=== PATIENT | female | born 1935 | race Caucasian/White ===

== ENCOUNTER 2019-03-03 08:16 | Outpatient (CLI) | payer MEDICARE ==
--- NOTE | 2019-03-03 10:22 | CT ---
CT orbits noncontrast: 03/03/2019 HISTORY: 83-year-old female with persistent posttraumatic left eye pain. FINDINGS: There is no fracture. No intraorbital edema, hematoma, gas, or foreign body. Bilateral globes have sy mmetrical, normal shape. Bilateral lenses are surgically absent. Extraocular muscles and optic nerves are bilaterally symmetrical. The paranasal sinuses are clear. Nasal cavity is clear. No superf icial soft tissue hematoma. IMPRESSION: Negative
== END 2019-03-03 08:17 | disposition home or self-care (01) ==
LOC: BICCT 08:16
PROVIDERS: ATTEND Family Medicine
DX: S05.12XA Contusion of eyeball and orbital tissues, left eye, initial encounter (principal)
CPT/HCPCS: 70480

== ENCOUNTER 2019-06-30 14:01 | Emergency (ER) | payer MEDICARE ==
[2019-06-30 14:57] LABS: #Basophils 0.1 thou/uL (0.0-0.2); #Eosinphils 0.2 thou/uL (0.0-0.7); #Lymphocytes 2.3 thou/uL (1.20-3.40); #Monocytes 0.8 thou/uL (0.11-0.59); #Neutrophils 4.4 thou/uL (1.40-6.50); %Basophils 1.3 % (0.0-1.0); %Eosinophils 2.8 % (0.0-10.0); %Lymphocytes 29.8 % (21.0-51.0); %Monocytes 10.2 % (0.0-10.0); %Neutrophils 55.9 % (42.0-75.0); Hemoglobin 11.6 g/dL (12.0-16.0); Mean Corpuscular HGB CONC 33.7 g/dL (32.0-36.0); Mean Corpuscular Hemoglobin 29.6 pg (27.0-31.0); Mean Corpuscular Volume 87.8 fL (78.0-98.0); Mean Platelet Volume 5.9 fL (7.4-10.4); Platelet Count 262 thou/uL (130-400); RBC Distribution Width 11.8 % (11.5-14.5); Red Blood Cell (RBC) Count 3.93 mill/uL (4.20-5.40); White Blood Cell (WBC) Count 7.8 thou/uL (4.8-10.8)
[2019-06-30 15:15] LABS: ALT (SGPT) 12 U/L (8-55); AST (SGOT) 17 U/L (5-34); Albumin 4.1 g/dL (3.4-4.8); Alkaline Phosphatase 51 U/L (40-150); Anion Gap 18 mmol/L (10-20); BUN (Urea Nitrogen) 11 mg/dL (9.8-20.1); Bilirubin, Total 0.3 mg/dL (0.2-1.2); Calc. Creatinine Clearance 0 mL/min (70-130); Calcium 10.2 mg/dL (7.8-10.44); Carbon Dioxide 24 mmol/L (23-31); Chloride 102 mmol/L (98-107); Estimated GFR-MDRD 69; Globulin 2.9 g/dL (2.4-3.5); Glucose 91 mg/dL (83-110); Lipase 42 U/L (8-78); Potassium 3.7 mmol/L (3.5-5.1); Sodium 140 mmol/L (136-145)
--- NOTE | 2019-06-30 15:19 | CT ---
EXAM: CT Abdomen Pelvis WO Con PROVIDED CLINICAL HISTORY: Left lower quadrant pain COMPARISON: None FINDINGS: The visualized lung bases are free of significant opacity. The solid abdominal organs are suboptimally evaluated in the absence of IV contrast material but demo nstrate an unremarkable unenhanced CT appearance. No evidence for urinary tract calculi. Minimal focal fat stranding about the distal descending colon with numerous sigmoid and descending co lonic diverticula seen. No evidence for extraluminal gas. No free fluid or evidence for bowel obstruction. No evidence for appendicitis. Scattered vascular calcifications are seen. The osseous structures demonstrate no concerning lytic or blastic lesions. Lower lumbar spine degener ative changes are seen. IMPRESSION: Uncomplicated descending colon diverticulitis.
[2019-06-30] MEDS ORDERED: Sodium Chloride 0.9% 100 ML ONE (15:53)
[2019-06-30] MEDS ORDERED: Piperacillin/Tazobactam 4.5 GM VIAL ONE (15:53)
[2019-06-30] MEDS ORDERED: Ondansetron PF 4 MG/2 ML Vial ONE (17:40)
[2019-06-30] MEDS ORDERED: Morphine 4 MG/ML VIAL ONE (17:40)
== END 2019-06-30 18:45 | disposition short-term general hospital (02) ==
LOC: SCSER 14:01
DX: K57.32 Diverticulitis of large intestine without perforation or abscess without bleeding (principal); E78.5 Hyperlipidemia, unspecified; E78.00 Pure hypercholesterolemia, unspecified; F41.9 Anxiety disorder, unspecified; F32.9 Major depressive disorder, single episode, unspecified; Z79.899 Other long term (current) drug therapy; Z79.82 Long term (current) use of aspirin
CPT/HCPCS: 74176; 80053; 83605; 83690; 85025; 96361; 96365; J2270; J2405; J2543; J3490

== ENCOUNTER 2022-07-23 17:30 | Outpatient (CLI) | payer MEDICARE | END 2022-07-23 17:31 | disposition home or self-care (01) | LOC: SLEEPLAB 17:30 | PROVIDERS: ATTEND Internal Medicine Pulmonary Disease | DX: G47.33 Obstructive sleep apnea (adult) (pediatric) (principal); R06.83 Snoring; R06.02 Shortness of breath; K21.9 Gastro-esophageal reflux disease without esophagitis; I10 Essential (primary) hypertension; E78.5 Hyperlipidemia, unspecified; G47.00 Insomnia, unspecified | CPT/HCPCS: 95800 ==

== ENCOUNTER 2023-06-07 09:04 | Outpatient (CLI) | payer MEDICARE, OTHER | END 2023-06-07 09:05 | disposition home or self-care (01) | LOC: SCSRAD 09:04 | PROVIDERS: ATTEND Family Medicine | DX: M25.531 Pain in right wrist (principal); S62.111A Displaced fracture of triquetrum [cuneiform] bone, right wrist, initial encounter for closed fracture | CPT/HCPCS: 36415; 80053; 80061; 81001; 83036; 84443; 85025 ==

== ENCOUNTER 2023-07-01 08:30 | Outpatient (CLI) | payer MEDICARE, OTHER | END 2023-07-01 08:31 | disposition home or self-care (01) | LOC: SCSRAD 08:30 | PROVIDERS: ATTEND Family Medicine | DX: S62.114A Nondisplaced fracture of triquetrum [cuneiform] bone, right wrist, initial encounter for closed fracture (principal) ==

== ENCOUNTER 2024-06-09 01:58 | Emergency (ER) | payer MEDICARE ==
[2024-06-09 03:06] LABS: #Basophils 0.03 10x3/uL (0.0-0.2); %Basophils 0.6 % (0.0-1.0); %Eosinophils 1.9 % (0.0-10.0); %Lymphocytes 29.4 % (21.0-51.0); %Neutrophils 51.9 % (42.0-75.0); Hematocrit 28.5 % (36.0-47.0); Hemoglobin 9.9 g/dL (12.0-16.0); Mean Corpuscular HGB CONC 34.7 g/dL (32.0-36.0); Mean Corpuscular Hemoglobin 30.5 pg (27.0-31.0); Mean Corpuscular Volume 87.7 fL (78.0-98.0); Mean Platelet Volume 8.3 fL (7.4-10.4); Platelet Count 281 10x3/uL (130-400); Red Blood Cell (RBC) Count 3.25 mill/uL (4.20-5.40)
[2024-06-09] MEDS ORDERED: Bacitracin 1 PK ONE (03:18)
[2024-06-09] MEDS ORDERED: Lidocaine 1% w/Epinephrine 1:100K 20 ML VIAL ONE (03:18)
[2024-06-09] MEDS ORDERED: Boostrix 0.5 ML (Tdap) VIAL (>/=7 yrs of age) ONE (03:18)
[2024-06-09 03:22] LABS: ALT (SGPT) 9 U/L (8-55); AST (SGOT) 17 U/L (5-34); Albumin 3.5 g/dL (3.4-4.8); Alkaline Phosphatase 45 U/L (40-110); Anion Gap 11 mmol/L (10-20); BUN (Urea Nitrogen) 16 mg/dL (9.8-20.1); Bilirubin, Total 0.3 mg/dL (0.2-1.2); Calc. Creatinine Clearance 0 mL/min (70-130); Calcium 9.3 mg/dL (7.8-10.44); Carbon Dioxide 26 mmol/L (23-31); Chloride 100 mmol/L (98-107); Estimated GFR 79; Globulin 2.3 g/dL (2.4-3.5); Glucose 94 mg/dL (83-110); Potassium 3.6 mmol/L (3.5-5.1); Protein, Total 5.8 g/dL (5.8-8.1); Sodium 133 mmol/L (136-145)
== END 2024-06-09 04:30 | disposition home or self-care (01) ==
LOC: ERS 01:58
DX: S01.01XA Laceration without foreign body of scalp, initial encounter (principal); I10 Essential (primary) hypertension; W19.XXXA Unspecified fall, initial encounter; Z23 Encounter for immunization
CPT/HCPCS: 12002; 70450; 71045; 72125; 80053; 85025; 90471; 90715; 93005

== ENCOUNTER 2025-08-05 20:00 | Inpatient (IN) | payer MEDICARE ==
[2025-08-05] MEDS ORDERED: Calcium Carbonate 500 MG ChewTAB PO PRN (21:26)
[2025-08-05] MEDS ORDERED: hydrALAZINE 20 MG/ML VIAL SLOW IVP PRN (21:26)
[2025-08-05 21:37] VITALS: BMI 27.3
[2025-08-05] MEDS: Mag-Al Plus 1200/1200/120 MG (30 mL) UDCUP PO SCH (22:57)
[2025-08-06 04:28] LABS: #Basophils Less than 0.03 10x3/uL (0.0-0.2); #Eosinophils 0.08 10x3/uL (0.0-0.7); #Monocytes 0.86 10x3/uL (0.11-0.59); #Neutrophils 3.77 10x3/uL (1.40-6.50); %Basophils 0.3 % (0.0-1.0); %Eosinophils 1.4 % (0.0-10.0); %Lymphocytes 19.8 % (21.0-51.0); %Monocytes 14.5 % (0.0-10.0); %Neutrophils 63.7 % (42.0-75.0); Hematocrit 28.9 % (36.0-47.0); Hemoglobin 9.5 g/dL (12.0-16.0); Mean Corpuscular Hemoglobin 29.4 pg (27.0-31.0); Mean Corpuscular Volume 89.5 fL (78.0-98.0); Platelet Count 208 10x3/uL (130-400); Red Blood Cell (RBC) Count 3.23 mill/uL (4.20-5.40); White Blood Cell (WBC) Count 5.92 10x3/uL (4.8-10.8)
[2025-08-06 04:51] LABS: ALT (SGPT) 16 U/L (Less than 34); AST (SGOT) 32 U/L (11-34); Albumin 3.5 g/dL (3.1-4.5); Alkaline Phosphatase 76 U/L (40-110); Anion Gap 12 mmol/L (10-20); BUN (Urea Nitrogen) 11 mg/dL (9.8-20.1); Bilirubin, Total 0.3 mg/dL (0.3-1.2); Calc. Creatinine Clearance 64 mL/min (70-130); Calcium 9.1 mg/dL (7.8-10.44); Carbon Dioxide 27 mmol/L (23-31); Cardiac Risk 2.3 (Less than 4.5); Chloride 103 mmol/L (98-107); Cholesterol 121 mg/dl (< 200 Desired); Globulin 2.4 g/dL (2.4-3.5); Glucose 99 mg/dL (83-110); HDL Cholesterol 52 mg/dL (>60 Neg Risk); LDL Cholesterol, Calculated 51 mg/dL; Potassium 3.5 mmol/L (3.5-5.1); Sodium 138 mmol/L (136-145); Triglycerides 92 mg/dL (Less than 150)
[2025-08-06] MEDS: Acetaminophen 325 MG TAB PO PRN (05:08)
[2025-08-06] MEDS: Rosuvastatin 5 MG TAB PO SCH (08:28)
[2025-08-06] MEDS: Cyanocobalamin (Vitamin B-12) 1,000 MCG TAB PO SCH (08:28)
[2025-08-06] MEDS: Multivitamin W/ Minerals 1 TAB PO SCH (08:28)
[2025-08-06] MEDS: Aspirin 81 mg Enteric Coated Tablet PO SCH (08:29)
[2025-08-06] MEDS ORDERED: Gabapentin 300 MG CAP PO SCH (09:00)
[2025-08-06] MEDS: Ondansetron PF 4 MG/2 ML Vial IVP PRN (11:00)
[2025-08-06] MEDS: Pantoprazole 40 MG DR.TAB PO SCH (20:52)
[2025-08-07] MEDS: Senokot S 8.6-50 MG TAB PO PRN (20:59)
[2025-08-08] MEDS: Losartan 25 MG TAB PO SCH (09:53)
[2025-08-08] MEDS: Acetaminophen 325 MG TAB PO SCH ×2 (09:54→16:56)
[2025-08-08] MEDS: hydrALAZINE 20 MG/ML VIAL SLOW IVP PRN (12:10)
[2025-08-09] MEDS: Losartan 25 MG TAB PO SCH (09:52)
[2025-08-09 11:28] VITALS: BP 151/79; TEMP 98.3
== END 2025-08-09 14:12 | DRG 103 ==
LOC: 2SE 21:05 → OBSVTOIN 08-08 12:07
PROVIDERS: ADMIT Internal Medicine; ATTEND Internal Medicine
DX: R51.9 Headache, unspecified (principal); R53.1 Weakness; I10 Essential (primary) hypertension; R26.0 Ataxic gait; R25.1 Tremor, unspecified; E03.9 Hypothyroidism, unspecified; E78.5 Hyperlipidemia, unspecified; I25.10 Atherosclerotic heart disease of native coronary artery without angina pectoris; Z88.5 Allergy status to narcotic agent; Z88.8 Allergy status to other drugs, medicaments and biological substances; F41.9 Anxiety disorder, unspecified; Z79.899 Other long term (current) drug therapy; Z79.890 Hormone replacement therapy
CPT/HCPCS: 36415; 70450; 70551; 71045; 80053; 80061; 81001; 83036; 83605; 83735; 83880; 84443; 84484; 85025; 93005; 93306; 96374; G0378; J0360; J2405; J7030; Q0162